=== PATIENT | female | born 1950 | race Caucasian/White ===

== ENCOUNTER → 2016-09-15 | Outpatient (CLI) | payer MEDICARE | END | disposition home or self-care (01) | LOC: CFH 09:26 | PROVIDERS: ATTEND Family Medicine | DX: D38.1 Neoplasm of uncertain behavior of trachea, bronchus and lung (principal); Z13.820 Encounter for screening for osteoporosis; M81.0 Age-related osteoporosis without current pathological fracture; Z78.0 Asymptomatic menopausal state; N95.1 Menopausal and female climacteric states; Z12.31 Encounter for screening mammogram for malignant neoplasm of breast; F17.200 Nicotine dependence, unspecified, uncomplicated; N95.8 Other specified menopausal and perimenopausal disorders | CPT/HCPCS: 71250; 77080; G0202 ==

== ENCOUNTER → 2016-09-25 | Outpatient (CLI) | payer MEDICARE | END | disposition home or self-care (01) | LOC: CFH 12:36 → EDSTATUS 13:00 | PROVIDERS: ATTEND Family Medicine | DX: D44.0 Neoplasm of uncertain behavior of thyroid gland (principal); E04.2 Nontoxic multinodular goiter | CPT/HCPCS: 76536 ==

== ENCOUNTER → 2016-10-15 | Outpatient (CLI) | payer MEDICARE ==
[~2016-10-15] MED LIST: LIDOCAINE 1%, 20ML ONE; SODIUM BICARBONATE 4.2%, 5ML ONE
== END | disposition home or self-care (01) ==
LOC: RAD 06:47
PROVIDERS: ATTEND Surgery
DX: E04.1 Nontoxic single thyroid nodule (principal); R59.0 Localized enlarged lymph nodes
CPT/HCPCS: 38505; 76942; 88172; 88173; J3490

== ENCOUNTER → 2017-03-19 | Outpatient (CLI) | payer MEDICARE ==
[~2017-03-19] MED LIST changes: +ASPI-515 PO; +ATOR20TA9 PO; +CALC-680 PO; +CALC1TAB84 PO; +CHOL200024 PO; +CYAN500T2 PO; -LIDOCAINE 1%, 20ML ONE; +MAGN250T8 PO; +MULT-208 PO; +POTA2.5T PO; -SODIUM BICARBONATE 4.2%, 5ML ONE; +[UNRECOGNIZED DRUG - CODE] PO; +potassium PO
== END | disposition home or self-care (01) ==
LOC: STAR 07:29
PROVIDERS: ATTEND Surgery
DX: Z01.818 Encounter for other preprocedural examination (principal); E04.1 Nontoxic single thyroid nodule; E78.00 Pure hypercholesterolemia, unspecified; M81.0 Age-related osteoporosis without current pathological fracture; M19.90 Unspecified osteoarthritis, unspecified site; Z87.891 Personal history of nicotine dependence
CPT/HCPCS: 93005

== ENCOUNTER 2017-03-30 11:29 | Day surgery (SDC) | payer MEDICAID, MEDICARE ==
[~2017-03-30] VITALS: Ht 165.1 cm; Wt 70.0 kg
[~2017-03-30 11:29] MED LIST changes: +FENTANYL PF 250 MCG/5ML ONE; +MIDAZOLAM 1 MG/ML, 2ML ONE
[2017-03-30] MEDS ORDERED: LACTATED RINGERS 1,000 ML IV SCH (11:40)
[2017-03-30] MEDS ORDERED: LIDOCAINE 1%, 2ML ONE (11:48)
[2017-03-30] MEDS ORDERED: LIDOCAINE 1%, 2ML SQ PRN (12:00)
[2017-03-30] MEDS ORDERED: LIDOCAINE 4%, 4 ML SYR/CANN TP ONE (12:30)
[2017-03-30] MEDS ORDERED: NEOSTIGMINE 1 MG/ML, 10ML ONE (12:40)
[2017-03-30] MEDS ORDERED: DEXAMETHASONE 4 MG/ML, 1ML ONE (12:40)
[2017-03-30] MEDS ORDERED: GLYCOPYRROLATE 0.2MG/1ML, 5ML ONE (12:40)
[2017-03-30] MEDS ORDERED: CEFAZOLIN 1,000 MG ONE (12:40)
[2017-03-30] MEDS ORDERED: PROPOFOL 10 MG/ML, 20ML ONE (12:40)
[2017-03-30] MEDS ORDERED: ONDANSETRON 2MG/ML, 2ML ONE (12:40)
[2017-03-30] MEDS ORDERED: LIDOCAINE-MPF 2% ,5ML ONE (12:40)
[2017-03-30] MEDS ORDERED: ROCURONIUM 10 MG/ML ONE (12:40)
[2017-03-30] MEDS ORDERED: SUCCINYLCHOLINE 20 MG/ML, 10ML ONE (12:40)
[2017-03-30] MEDS ORDERED: BUPIVACAINE/PF 0.5% INFIL ONE (12:54)
[2017-03-30] MEDS ORDERED: ONDANSETRON 2MG/ML, 2ML IVPush PRN (13:00)
[2017-03-30] MEDS ORDERED: PROMETHAZINE 25 MG/ML, 1ML IV PRN (13:00)
[2017-03-30] MEDS ORDERED: ACETAMINOPHEN 325 MG TABLET PO PRN (13:00)
[2017-03-30] MEDS ORDERED: HYDROcodone/APAP 7.5-325MG/15ML UDC PO PRN (13:00)
[2017-03-30] MEDS ORDERED: HYDROmorphone 1 MG/ML, 1ML IV PRN (13:00)
[2017-03-30] MEDS ORDERED: OXYcodone 5 MG/5 ML ORAL.SOL UDC PO PRN (13:00)
[2017-03-30] MEDS ORDERED: HYDROcodone/APAP 7.5-325MG/15ML UDC ONE ×2 (13:52→13:53)
[2017-03-30] MEDS ORDERED: FENTANYL PF 100 MCG/2ML ONE (13:53)
[2017-03-30] MEDS: FENTANYL PF 100 MCG/2ML IV PRN ×2 (13:55→14:03)
[2017-03-30] MEDS ORDERED: BUPIVACAINE/PF 0.5% ONE (15:25)
[2017-03-30] MEDS ORDERED: EPINEPHRINE 1 MG/ML, 1ML ONE (15:25)
== END 2017-03-30 17:05 ==
LOC: OUT 11:29
PROVIDERS: ATTEND Surgery
DX: E04.1 Nontoxic single thyroid nodule (principal); E78.00 Pure hypercholesterolemia, unspecified; Z90.49 Acquired absence of other specified parts of digestive tract; Z98.890 Other specified postprocedural states; Z79.82 Long term (current) use of aspirin; Z91.030 Bee allergy status
CPT/HCPCS: 60220; 88307; C1729; C1760; J0171; J0330; J0690; J1100; J2250; J2405; J2704; J2710; J3010; J3490; J7120

== ENCOUNTER → 2017-04-07 | Outpatient (CLI) | payer MEDICARE ==
[~2017-04-07] MED LIST changes: -FENTANYL PF 250 MCG/5ML ONE; -MIDAZOLAM 1 MG/ML, 2ML ONE
== END | disposition home or self-care (01) ==
LOC: CFH 13:11
PROVIDERS: ATTEND Family Medicine
DX: R53.83 Other fatigue (principal)
CPT/HCPCS: 71020

== ENCOUNTER → 2017-10-21 | Outpatient (CLI) | payer MEDICARE, MEDICAID | END | disposition home or self-care (01) | LOC: CFH 09:49 | PROVIDERS: ATTEND Family Medicine | DX: Z12.31 Encounter for screening mammogram for malignant neoplasm of breast (principal); Z12.2 Encounter for screening for malignant neoplasm of respiratory organs; J43.2 Centrilobular emphysema; I25.10 Atherosclerotic heart disease of native coronary artery without angina pectoris; J84.10 Pulmonary fibrosis, unspecified; M25.552 Pain in left hip; M50.322 Other cervical disc degeneration at C5-C6 level; M81.0 Age-related osteoporosis without current pathological fracture; F17.210 Nicotine dependence, cigarettes, uncomplicated | CPT/HCPCS: 72050; 73030; 77067; 77080; G0297 ==